=== PATIENT | male | born 1950 | race Caucasian/White ===

== ENCOUNTER → 2016-10-18 | Outpatient (CLI) | payer MEDICARE, OTHER ==
[~2016-10-18] MED LIST: ALPRAZOLAM0.5 MG PO; CHLORZOXAZONE500 MG PO; CIPRO500 MG PO; CLINDAMYCIN HC300 MG PO; FLOMAX0.4 MG PO; LATANOPROST2.5 ML OP; LIPITOR TAB 2020 MG PO; METOPROLOL TART25 MG PO; NEURONTIN 300300 MG PO; NITROSTAT 0.40.4 MG SL; OXYCODONE HCL5 MG PO; OXYCONTIN20 MG PO; PLAVIX 75 MG TA75 MG PO; SYNTHROID88 MCG PO; ZANTAC300 MG PO
[2016-10-18 14:14] LABS: HEMOGLOBIN 11.9 gm/dl (14.0-17.5); RED BLOOD COUNT 3.76 M/UL (4.20-5.50); WHITE BLOOD COUNT 6.8 K/UL (4.5-11.0)
== END ==
LOC: OPSV 12:30
PROVIDERS: Internal Medicine Infectious Disease
DX: M86.8X7 Other osteomyelitis, ankle and foot (principal)
CPT/HCPCS: 36415; 80053; 85025; 86140; G0463

== ENCOUNTER 2017-01-10 08:25 | Inpatient (IN) | payer MEDICARE, OTHER ==
[~2017-01-10] VITALS: Ht 180.3 cm; Wt 76.7 kg
[~2017-01-10 08:25] MED LIST changes: -ALPRAZOLAM0.5 MG PO; -CHLORZOXAZONE500 MG PO; -CIPRO500 MG PO; -CLINDAMYCIN HC300 MG PO; -FLOMAX0.4 MG PO; -LATANOPROST2.5 ML OP; -LIPITOR TAB 2020 MG PO; -METOPROLOL TART25 MG PO; -NEURONTIN 300300 MG PO; -NITROSTAT 0.40.4 MG SL; -OXYCODONE HCL5 MG PO; -OXYCONTIN20 MG PO; -PLAVIX 75 MG TA75 MG PO; -ZANTAC300 MG PO
[2017-01-10 09:27] LABS: RED BLOOD COUNT 3.8 M/UL (4.20-5.50); WHITE BLOOD COUNT 7.8 K/UL (4.5-11.0)
[2017-01-10] MEDS ORDERED: FLOMAX0.4 MG PO (09:36)
[2017-01-10] MEDS ORDERED: NITROSTAT 0.40.4 MG SL (09:36)
[2017-01-10] MEDS ORDERED: NEURONTIN 300300 MG PO (09:37)
[2017-01-10] MEDS ORDERED: ALPRAZOLAM0.5 MG PO (09:38)
[2017-01-10] MEDS ORDERED: CHLORZOXAZONE500 MG PO (09:38)
[2017-01-10] MEDS ORDERED: LATANOPROST2.5 ML OP (09:39)
[2017-01-10] MEDS ORDERED: PLAVIX 75 MG TA75 MG PO (09:39)
[2017-01-10] MEDS ORDERED: METOPROLOL TART25 MG PO (09:40)
[2017-01-10] MEDS ORDERED: OXYCONTIN20 MG PO (09:41)
[2017-01-10] MEDS ORDERED: OXYCODONE HCL5 MG PO (09:41)
[2017-01-10] MEDS ORDERED: ZANTAC300 MG PO (14:29)
[2017-01-10] MEDS ORDERED: LIPITOR TAB 2020 MG PO (14:31)
[2017-01-11 07:17] LABS: HEMOGLOBIN 10.2 gm/dl (14.0-17.5)
[2017-01-11 07:22] LABS: RED BLOOD COUNT 3.27 M/UL (4.20-5.50); WHITE BLOOD COUNT 5.8 K/UL (4.5-11.0)
--- NOTE | 2017-01-11 18:07 | NUR ---
DRESSING CHANGE TO PATIENT'S RIGHT GREAT TOE COMPLETED; PROCEDURE TOLERATED WELL. CURRENTLY PATIENT IS RESTING IN FOWLERS POSITION WATCHING TV. CALL LIGHT WITH IN REACH. WILL CONTINUE TO MONITOR.
[2017-01-12 04:54] LABS: HEMOGLOBIN 10.5 gm/dl (14.0-17.5); RED BLOOD COUNT 3.36 M/UL (4.20-5.50)
[2017-01-12 05:18] LABS: BUN/CREATININE RATIO 9 (0-10)
[2017-01-13 04:41] LABS: HEMOGLOBIN 10.7 gm/dl (14.0-17.5); RED BLOOD COUNT 3.4 M/UL (4.20-5.50); WHITE BLOOD COUNT 8.1 K/UL (4.5-11.0)
[2017-01-14] MEDS ORDERED: CIPRO500 MG PO (17:22)
[2017-01-14] MEDS ORDERED: CLINDAMYCIN HC300 MG PO (17:23)
== END 2017-01-14 18:30 | disposition home health service (06) | DRG 501 ==
LOC: OR 08:25 → M/S 13:02 → OR 14:15 → M/S 01-11 09:48 → OR 01-11 09:48 → M/S 01-14 18:30
PROVIDERS: Family Medicine; ADMIT Orthopaedic Surgery
PROC: 0LBV0ZZ Excision of Right Foot Tendon, Open Approach (ICD-10-PCS; 2017-01-10)
PROC: 0Y6P0Z1 Detachment at Right 1st Toe, High, Open Approach (ICD-10-PCS; principal; 2017-01-10 11:45)
DX: M86.671 Other chronic osteomyelitis, right ankle and foot (principal); C90.00 Multiple myeloma not having achieved remission; Z94.84 Stem cells transplant status; M65.171 Other infective (teno)synovitis, right ankle and foot; I51.9 Heart disease, unspecified; I10 Essential (primary) hypertension; E07.9 Disorder of thyroid, unspecified; N40.0 Benign prostatic hyperplasia without lower urinary tract symptoms; H35.30 Unspecified macular degeneration; G89.29 Other chronic pain; F41.9 Anxiety disorder, unspecified; Z86.73 Personal history of transient ischemic attack (TIA), and cerebral infarction without residual deficits; Z79.02 Long term (current) use of antithrombotics/antiplatelets; Z79.891 Long term (current) use of opiate analgesic; Z79.899 Other long term (current) drug therapy; Z98.890 Other specified postprocedural states; Z82.49 Family history of ischemic heart disease and other diseases of the circulatory system; Z83.6 Family history of other diseases of the respiratory system
CPT/HCPCS: 36415; 71010; 80048; 80053; 80202; 81001; 85025; 85027; 86140; 87070; 87205; 93005; J0690; J3010; J3370; J7030; J7070; J7120

== ENCOUNTER → 2017-01-31 | Outpatient (CLI) | payer MEDICARE, OTHER ==
[~2017-01-31] MED LIST changes: +ALPRAZOLAM0.5 MG PO; +CHLORZOXAZONE500 MG PO; +CIPRO500 MG PO; +CLINDAMYCIN HC300 MG PO; +FLOMAX0.4 MG PO; +LATANOPROST2.5 ML OP; +LIPITOR TAB 2020 MG PO; +METOPROLOL TART25 MG PO; +NEURONTIN 300300 MG PO; +NITROSTAT 0.40.4 MG SL; +OXYCODONE HCL5 MG PO; +OXYCONTIN20 MG PO; +PLAVIX 75 MG TA75 MG PO; +ZANTAC300 MG PO
== END ==
LOC: OPSV 13:07
DX: Z47.81 Encounter for orthopedic aftercare following surgical amputation (principal); Z89.411 Acquired absence of right great toe
CPT/HCPCS: G0463

== ENCOUNTER 2021-03-31 11:42 | Emergency (ER) | payer MEDICARE, OTHER ==
[2021-03-31 12:56] LABS: HEMOGLOBIN 11.6 gm/dl (14.0-17.5); RED BLOOD COUNT 3.54 M/UL (4.20-5.50); WHITE BLOOD COUNT 3.8 K/UL (4.5-11.0)
[2021-03-31] MEDS ORDERED: ONDANSETRON ODT4 MG SL (18:14)
[2021-03-31] MEDS ORDERED: VIBRAMYCIN 100100 MG PO (18:14)
[2021-03-31] MEDS ORDERED: PROAIR HFA8.5 GM INH (18:14)
[2021-03-31] MEDS ORDERED: PHENERGAN 25 MG25 M1 PO (18:18)
== END 2021-03-31 21:00 | disposition home or self-care (01) ==
LOC: ER1 11:42
PROVIDERS: Physician Assistant
DX: Z23 Encounter for immunization (principal); U07.1 COVID-19; J12.82 Pneumonia due to coronavirus disease 2019; J44.0 Chronic obstructive pulmonary disease with (acute) lower respiratory infection; K52.9 Noninfective gastroenteritis and colitis, unspecified; E78.5 Hyperlipidemia, unspecified; F17.200 Nicotine dependence, unspecified, uncomplicated; E03.9 Hypothyroidism, unspecified
CPT/HCPCS: 71045; 80053; 82550; 82553; 83605; 83690; 83874; 84484; 85025; 87040; 93005; 96374; 96376; 99285; J2405; J7030; M0243; Q9967; U0002